=== PATIENT | female | born 1985 | race Two or more races ===

== ENCOUNTER 2017-07-09 22:07 | Emergency (ER) | payer MEDICAID, SELFPAY ==
[~2017-07-09] VITALS: Ht 162.6 cm; Wt 63.5 kg
[~2017-07-09 22:07] MED LIST: IBUPROFEN600 MG ORAL; NORCO 5-325 TA1 EACH ORAL; ZOFRAN4 MG ORAL
[2017-07-09] MEDS ORDERED: TYLENOL EXTRA500 MG ORAL (22:27)
[2017-07-09 22:32] VITALS: BP 112/75
--- NOTE | 2017-07-09 22:38 | Emergency Room Report ---
History of Present Illness General Chief Complaint: Fever Source: Patient Present Illness HPI Patient is a 32-year-old female who presented after having 2 weeks of Onset of headache. Patient had been taking Excedrin as well as a Tylenol but continued to have headaches. Patient had a previous history of similar type headaches and had been having a CT imaging in the past. Patient denied any weakness. She had not been vomiting. She denied any visual changes. She denied neck stiffness. Allergies: Coded Allergies: No Known Allergies (Unverified , 10/12/13) Patient History Past Medical History: see triage record Last Menstrual Period: 06/14/17 Now: No Reviewed Nursing Documentation: PMH: Agreed, PSxH: Agreed Nursing Documentation-PMH Past Medical History: No Stated History Review of Systems All Other Systems: negative except mentioned in HPI Physical Exam Vital Signs Date Time Temp Pulse Resp B/P (MAP) Pulse Ox O2 Delivery O2 Flow Rate FiO2 07/09/17 22:23 99.7 116 19 112/75 98 Room Air General Appearance: well appearing, no apparent distress, alert, GCS 15 Head: normocephalic, atraumatic ENT: hearing grossly normal, normal voice Neck: full range of motion, supple Respiratory: no respiratory distress, speaking full sentences Cardiovascular #1: normal inspection, regular rate, rhythm Musculoskeletal: no calf tenderness Neurologic: normal gait Psychiatric: mood/affect normal Skin: no rash Medical Decision Making Diagnostic Impression: Primary Impression: Urinary tract infection ER Course Patient presented for headache. Differential diagnoses included but was not limited to skull fracture, subarachnoid hemorrhage, meningitis, aneurysm, mass lesion, intracranial hemorrhage. Patient's benign exam and does not appear to require any further imaging. Patient appears to have some evidence of urinary infection. Labs Test 07/09/17 22:43 Urine Color Yellow Urine Appearance Clear Urine pH 6 (4.5-8.0) Urine Specific [place] 1.015 (1.005-1.035) Urine Protein 1+ (NEGATIVE) Urine Glucose (UA) Negative (NEGATIVE) Urine Ketones Negative (NEGATIVE) Urine Occult Blood 1+ (NEGATIVE) Urine Nitrite Negative (NEGATIVE) Urine Bilirubin Negative (NEGATIVE) Urine Urobilinogen Normal MG/DL (0.0-1.0) Urine Leukocyte Esterase 1+ (NEGATIVE) Urine RBC 5-10 /HPF (0 - 2) Urine WBC 5-10 /HPF (0 - 2) Urine Squamous Epithelial Cells Few /LPF (NONE/OCC) Urine Bacteria Few /HPF (NONE) Urine HCG, Qualitative Negative Last Vital Signs Date Time Temp Pulse Resp B/P (MAP) Pulse Ox O2 Delivery O2 Flow Rate FiO2 07/09/17 22:23 99.7 116 19 112/75 98 Room Air Status: improved Disposition: HOME, SELF-CARE Condition: Stable Scripts Cephalexin* (KEFLEX*) 500 Mg Capsule 500 MG ORAL Q6H, #28 CAP 0 Refills Prov: Zach Lucero 07/09/17 Ibuprofen* (MOTRIN*) 600 Mg Tablet 600 MG ORAL Q6H Y for For Pain, #30 TAB 0 Refills Prov: Zach Lucero 07/09/17 Zach Lucero Jul 09, 2017 22:38
[2017-07-09 23:08] LABS: APPEARANCE,URINE CLEAR; KETONES,URINE NEGATIVE (NEGATIVE); LEUKOCYTE ESTERASE ,URINE 1+ (NEGATIVE); NITRITE,URINE NEGATIVE (NEGATIVE); PH,URINE 6 (4.5-8.0); PROTEIN,URINE 1+ (NEGATIVE); UROBILINOGEN,URINE NORMAL MG/DL (0.0-1.0)
[2017-07-09 23:17] LABS: BACTERIA,URINE FEW /HPF; SQUAMOUS EPITHELIAL CELL,UR FEW /LPF (NONE/OCC)
[2017-07-09] MEDS ORDERED: IBUPROFEN600 MG ORAL (23:28)
[2017-07-09] MEDS ORDERED: KEFLEX500 MG ORAL (23:28)
[2017-07-09] MEDS ORDERED: Cephalexin 500mg cap ORAL ONE (23:30)
[2017-07-09 23:39] VITALS: BP 122/79
== END 2017-07-09 23:39 | disposition home or self-care (01) ==
LOC: EMR 22:51
DX: N39.0 Urinary tract infection, site not specified (principal)
CPT/HCPCS: 81003; 81025; 99284